=== PATIENT | male | born 1990 | race Caucasian/White ===

== ENCOUNTER 2021-11-26 19:35 | Inpatient (IN) | payer OTHER ==
[~2021-11-26] VITALS: Ht 173 cm; Wt 182.9 kg
[2021-11-26 21:06] LABS: BASOPHIL 0.2 % (0-2); EOSINOPHIL 0 % (0-5); HCT 45.5 % (42.0-52.0); HGB 14.2 g/dl (13.2-18.0); LYMPHOCYTE 12.1 % (15-48); MCH 27.3 pg (25.0-31.0); MCHC 31.2 g/dL (32.0-36.0); MCV 87.3 fL (78.0-100.0); MONOCYTE 3.6 % (0-12); NEUTROPHIL 83.9 % (41-80); NRBC 0; PLT 156 K/uL (150-400); RBC 5.21 M/uL (4.70-6.00); RDW 15.2 % (11.5-14.0); WBC 4.9 K/uL (4.0-10.5)
[2021-11-26 21:42] LABS: BUN/CREAT RATIO (CALC) 20.4 RATIO; CREATININE 0.54 mg/dL (0.67-1.17)
[2021-11-26 22:02] LABS: INFLUENZA A NAA NEGATIVE (NEGATIVE)
[2021-11-26 22:04] LABS: CORONAVIRUS 2019 SARS-COV-2 POSITIVE (NEGATIVE)
[2021-11-27 03:42] LABS: ALBUMIN 2.7 g/dL (3.4-5.0); BILIRUBIN - DIRECT 0.1 mg/dL (0.00-0.20); BILIRUBIN - TOTAL 0.3 mg/dL (0.2-1.0); GLOBULIN (CALCULATION) 4.8 g/dL; TOTAL PROTEIN 7.5 g/dL (6.4-8.2)
[2021-11-27 12:55] LABS: FLU B NEGATIVE B (NEGATIVE B)
[2021-11-28 05:48] LABS: BASOPHIL 0 % (0-2); EOSINOPHIL 0 % (0-5); HCT 43.2 % (42.0-52.0); HGB 13.5 g/dl (13.2-18.0); LYMPHOCYTE 11.1 % (15-48); MCH 26.8 pg (25.0-31.0); MCHC 31.3 g/dL (32.0-36.0); MCV 85.9 fL (78.0-100.0); MONOCYTE 3.8 % (0-12); MPV 8.7 fL (6.0-9.5); NEUTROPHIL 84.8 % (41-80); NRBC 0; PLT 212 K/uL (150-400); RBC 5.03 M/uL (4.70-6.00); RDW 15.1 % (11.5-14.0); WBC 7.9 K/uL (4.0-10.5)
[2021-11-28 07:19] LABS: BUN/CREAT RATIO (CALC) 29.3 RATIO; CREATININE 0.41 mg/dL (0.67-1.17); MAGNESIUM 2.1 mg/dL (1.8-2.4); POTASSIUM 3.8 mmol/L (3.5-5.1)
--- NOTE | 2021-11-28 16:47 | NUR ---
11/28/ Please monitor for
[2021-11-29 06:44] LABS: BUN/CREAT RATIO (CALC) 35.1 RATIO; C-REACTIVE PROTEIN 11.5 mg/dL (<=0.90); CREATININE 0.37 mg/dL (0.67-1.17); POTASSIUM 3.7 mmol/L (3.5-5.1)
[2021-11-30 05:28] LABS: CREATININE 0.45 mg/dL (0.67-1.17)
[2021-11-30 05:29] LABS: POTASSIUM 5.2 mmol/L (3.5-5.1)
[2021-12-01 04:25] LABS: BASOPHIL 0.2 % (0-2); EOSINOPHIL 0 % (0-5); HCT 42.6 % (42.0-52.0); HGB 13.6 g/dl (13.2-18.0); LYMPHOCYTE 12.1 % (15-48); MCHC 31.9 g/dL (32.0-36.0); MCV 84.7 fL (78.0-100.0); MONOCYTE 4.8 % (0-12); MPV 8.9 fL (6.0-9.5); NEUTROPHIL 81.4 % (41-80); NRBC 0; PLT 282 K/uL (150-400); RBC 5.03 M/uL (4.70-6.00); RDW 14.9 % (11.5-14.0); WBC 8.1 K/uL (4.0-10.5)
[2021-12-01 04:50] LABS: ALBUMIN 2.3 g/dL (3.4-5.0); BILIRUBIN - TOTAL 0.3 mg/dL (0.2-1.0); BUN/CREAT RATIO (CALC) 41.3 RATIO; CREATININE 0.46 mg/dL (0.67-1.17); GLOBULIN (CALCULATION) 4.6 g/dL; TOTAL PROTEIN 6.9 g/dL (6.4-8.2)
[2021-12-02 06:23] LABS: BASOPHIL 0.1 % (0-2); EOSINOPHIL 0.1 % (0-5); HCT 43.4 % (42.0-52.0); HGB 13.8 g/dl (13.2-18.0); LYMPHOCYTE 21.4 % (15-48); MCH 27.3 pg (25.0-31.0); MCHC 31.8 g/dL (32.0-36.0); MCV 85.9 fL (78.0-100.0); MONOCYTE 5.5 % (0-12); MPV 8.7 fL (6.0-9.5); NEUTROPHIL 72.3 % (41-80); NRBC 0; PLT 307 K/uL (150-400); RBC 5.05 M/uL (4.70-6.00); WBC 9.5 K/uL (4.0-10.5)
[2021-12-02 06:42] LABS: ALBUMIN 2.4 g/dL (3.4-5.0); BILIRUBIN - TOTAL 0.4 mg/dL (0.2-1.0); BUN/CREAT RATIO (CALC) 35.3 RATIO; C-REACTIVE PROTEIN 0.2 mg/dL (<=0.90); CREATININE 0.51 mg/dL (0.67-1.17); GLOBULIN (CALCULATION) 4.3 g/dL; TOTAL PROTEIN 6.7 g/dL (6.4-8.2)
[2021-12-02 06:58] LABS: POTASSIUM 3.2 mmol/L (3.5-5.1)
[2021-12-03 06:44] LABS: BASOPHIL 0.1 % (0-2); EOSINOPHIL 0.4 % (0-5); HCT 43.1 % (42.0-52.0); HGB 14.2 g/dl (13.2-18.0); LYMPHOCYTE 16.4 % (15-48); MCH 28.3 pg (25.0-31.0); MCHC 32.9 g/dL (32.0-36.0); MCV 85.9 fL (78.0-100.0); MONOCYTE 4.6 % (0-12); MPV 8.7 fL (6.0-9.5); NEUTROPHIL 77.3 % (41-80); NRBC 0; PLT 308 K/uL (150-400); RBC 5.02 M/uL (4.70-6.00); RDW 14.8 % (11.5-14.0); WBC 9.3 K/uL (4.0-10.5)
[2021-12-03 07:12] LABS: ALBUMIN 2.4 g/dL (3.4-5.0); BILIRUBIN - TOTAL 0.4 mg/dL (0.2-1.0); BUN/CREAT RATIO (CALC) 22.7 RATIO; CREATININE 0.44 mg/dL (0.67-1.17); GLOBULIN (CALCULATION) 4.5 g/dL; POTASSIUM 3.3 mmol/L (3.5-5.1); TOTAL PROTEIN 6.9 g/dL (6.4-8.2)
--- NOTE | 2021-12-04 15:15 | NUR ---
01/04/22 This social science professor was unable to reach Mr. Al by telephone. His mother reported the following: Mr. Al lives with his mother. He is independent with mobility and ADLS. Ms. Al reports her son to be unable to work due to "debilitating anxiety". He is in the process of applying for SSD. - Ms. Al states that [facility] is not seeing a therapist or mental health provider. She was provided with the telephone # to [facility]. - Ms. Al chose [facility] for 02 needs.
[2021-12-06 04:57] LABS: BASOPHIL 0.1 % (0-2); EOSINOPHIL 2.9 % (0-5); HGB 13.7 g/dl (13.2-18.0); LYMPHOCYTE 21.9 % (15-48); MCH 26.9 pg (25.0-31.0); MCHC 31.1 g/dL (32.0-36.0); MCV 86.3 fL (78.0-100.0); MONOCYTE 5.7 % (0-12); MPV 8.8 fL (6.0-9.5); NRBC 0; PLT 423 K/uL (150-400); RDW 14.7 % (11.5-14.0)
[2021-12-06 05:30] LABS: BUN/CREAT RATIO (CALC) 22.4 RATIO; CREATININE 0.49 mg/dL (0.67-1.17)
[2021-12-09] MEDS ORDERED: METFORMIN HCL500 MG PO (14:38)
[2021-12-09] MEDS ORDERED: LEVEMIR FL100 UNIT/1 SC (14:43)
[2021-12-09] MEDS ORDERED: NOVOLOG FL100 UNIT/1 SC (14:43)
--- NOTE | 2021-12-09 15:42 | NUR ---
12/09/21 A referral was made to [facility] home 02 at 5L.
[2021-12-09] MEDS ORDERED: VENTOLIN HFA IN18 GM INH (15:48)
== END 2021-12-09 17:15 | disposition home or self-care (01) | DRG 177 ==
LOC: FER 19:35 → FTCU 11-27 01:42 → FMS 12-05 11:12
PROVIDERS: Allergy & Immunology Allergy; Hospitalist; Internal Medicine; ADMIT Internal Medicine
PROC: XW033E5 Introduction of Remdesivir Anti-infective into Peripheral Vein, Percutaneous Approach, New Technology Group 5 (ICD-10-PCS; principal; 2021-11-26)
PROC: 8E0ZXY6 Isolation (ICD-10-PCS; 2021-11-27)
PROC: XW0DXM6 Introduction of Baricitinib into Mouth and Pharynx, External Approach, New Technology Group 6 (ICD-10-PCS; 2021-11-28)
PROC: 5A0955A Assistance with Respiratory Ventilation, Greater than 96 Consecutive Hours, High Flow/Velocity Cannula (ICD-10-PCS; 2021-11-30)
DX: U07.1 COVID-19 (principal); J12.82 Pneumonia due to coronavirus disease 2019; J96.01 Acute respiratory failure with hypoxia; Z68.44 Body mass index [BMI] 60.0-69.9, adult; E66.2 Morbid (severe) obesity with alveolar hypoventilation; E87.5 Hyperkalemia; E11.65 Type 2 diabetes mellitus with hyperglycemia; T38.0X5A Adverse effect of glucocorticoids and synthetic analogues, initial encounter; F41.9 Anxiety disorder, unspecified; I10 Essential (primary) hypertension; K76.0 Fatty (change of) liver, not elsewhere classified; Z88.0 Allergy status to penicillin; Z83.3 Family history of diabetes mellitus
CPT/HCPCS: 36415; 36600; 71045; 71250; 80048; 80053; 80076; 82550; 82728; 82803; 82962; 83036; 83735; 84145; 85025; 85379; 86140; 87804; 87899; 94010; 94640; 94660; 94664; 96372; 97162; 97530-GP; C9113; C9399; J0456; J0696; J1100; J1650; J1815; J7030; J7050; J8540; U0002

== ENCOUNTER 2021-12-23 09:12 | Inpatient (IN) | payer OTHER ==
[~2021-12-23] VITALS: Ht 175.3 cm; Wt 164.7 kg
[~2021-12-23 09:12] MED LIST: LEVEMIR FL100 UNIT/1 SC; METFORMIN HCL500 MG PO; NOVOLOG FL100 UNIT/1 SC; VENTOLIN HFA IN18 GM INH
[2021-12-23 09:42] LABS: BASOPHIL 0.3 % (0-2); EOSINOPHIL 0.1 % (0-5); HCT 41.7 % (42.0-52.0); HGB 12.7 g/dl (13.2-18.0); LYMPHOCYTE 9.7 % (15-48); MCH 26.3 pg (25.0-31.0); MCHC 30.5 g/dL (32.0-36.0); MCV 86.5 fL (78.0-100.0); MONOCYTE 5.2 % (0-12); NEUTROPHIL 83.1 % (41-80); NRBC 0.5; PLT 373 K/uL (150-400); RBC 4.82 M/uL (4.70-6.00); RDW 17.4 % (11.5-14.0); WBC 15.3 K/uL (4.0-10.5)
[2021-12-23 10:22] LABS: ALBUMIN 2.5 g/dL (3.4-5.0); BILIRUBIN - TOTAL 0.6 mg/dL (0.2-1.0); BUN/CREAT RATIO (CALC) 35.2 RATIO; CREATININE 0.54 mg/dL (0.67-1.17); GLOBULIN (CALCULATION) 5.2 g/dL; INR 1.25 (0.9-1.2); TOTAL PROTEIN 7.7 g/dL (6.4-8.2)
[2021-12-23 10:23] LABS: PTT 50.1 SECONDS (24.4-34.7)
[2021-12-23 10:24] LABS: D-DIMER 2.98 ug/mLFEU (0.00-0.41); LACTIC ACID 2.7 mmol/L (0.4-1.9)
[2021-12-23 11:35] LABS: INFLUENZA A NAA NEGATIVE (NEGATIVE)
[2021-12-23 11:39] LABS: CORONAVIRUS 2019 SARS-COV-2 POSITIVE (NEGATIVE)
[2021-12-23 16:58] LABS: C-REACTIVE PROTEIN > 18.00 mg/dL (<=0.90)
[2021-12-24 04:12] LABS: BASOPHIL 0.2 % (0-2); EOSINOPHIL 0 % (0-5); HCT 41.7 % (42.0-52.0); HGB 12.9 g/dl (13.2-18.0); LYMPHOCYTE 7.5 % (15-48); MCH 26.7 pg (25.0-31.0); MCHC 30.9 g/dL (32.0-36.0); MCV 86.3 fL (78.0-100.0); MONOCYTE 3.1 % (0-12); MPV 9.2 fL (6.0-9.5); NEUTROPHIL 88.7 % (41-80); NRBC 0; PLT 285 K/uL (150-400); RBC 4.83 M/uL (4.70-6.00); RDW 17.1 % (11.5-14.0); WBC 13.1 K/uL (4.0-10.5)
[2021-12-24 05:12] LABS: ALBUMIN 2.4 g/dL (3.4-5.0); ALKALINE PHOSHATASE 73 U/L (46-116); ALT 67 U/L (16-63); AST 34 U/L (15-37); BILIRUBIN - TOTAL 0.3 mg/dL (0.2-1.0); BUN 14 mg/dL (7-18); BUN/CREAT RATIO (CALC) 33.3 RATIO; C-REACTIVE PROTEIN >18.00 mg/dL (<=0.90); CHLORIDE 103 mmol/L (98-107); CO2 (BICARBONATE) 31 mmol/L (21-32); CREATININE 0.42 mg/dL (0.67-1.17); GLOBULIN (CALCULATION) 4.5 g/dL; GLUCOSE 251 mg/dL (74-106); POTASSIUM 4.6 mmol/L (3.5-5.1); TOTAL PROTEIN 6.9 g/dL (6.4-8.2)
[2021-12-24 06:08] LABS: HBSAG SCREEN Negative (Negative); HEP A AB, IGM Negative (Negative); HEP B CORE AB, IGM Negative (Negative); HEP C VIRUS AB <0.1 (0.0-0.9)
[2021-12-26 06:06] LABS: BASOPHIL 0.1 % (0-2); EOSINOPHIL 0 % (0-5); HCT 40.8 % (42.0-52.0); LYMPHOCYTE 8.6 % (15-48); MCH 26.1 pg (25.0-31.0); MCHC 29.4 g/dL (32.0-36.0); MCV 88.7 fL (78.0-100.0); MONOCYTE 4.9 % (0-12); MPV 9.4 fL (6.0-9.5); NEUTROPHIL 85.7 % (41-80); NRBC 0; PLT 405 K/uL (150-400); RDW 17.3 % (11.5-14.0); WBC 15.5 K/uL (4.0-10.5)
[2021-12-26 06:21] LABS: ALBUMIN 2.3 g/dL (3.4-5.0); BILIRUBIN - TOTAL 0.4 mg/dL (0.2-1.0); BUN/CREAT RATIO (CALC) 39.5 RATIO; C-REACTIVE PROTEIN 9.3 mg/dL (<=0.90); CREATININE 0.43 mg/dL (0.67-1.17); GLOBULIN (CALCULATION) 4.3 g/dL; MAGNESIUM 2.1 mg/dL (1.8-2.4); PHOSPHORUS 3.7 mg/dL (2.6-4.7); POTASSIUM 4.8 mmol/L (3.5-5.1); TOTAL PROTEIN 6.6 g/dL (6.4-8.2)
--- NOTE | 2021-12-26 10:28 | NUR ---
PT CHANGED FROM HI FLOW 02 TO OXYMIZER AT 15LPM. ON X 20 MINUTES O2 SAT 81% PT CHANGED BACK TO HI FLOW O2 60LMP 100%.
--- NOTE | 2021-12-26 14:07 | NUR ---
12/26/21 Mr. Al lives at home with his mother. He was discharged on 02 at 5 L from [facility]. His mother previously stated that he has debilitating anxiety. Inquiry is being made if patient would qualify for a trilogy or high flow at home.
[2021-12-27 05:18] LABS: IRON % SATURATION 7.6 %SAT (20-50)
[2021-12-27 05:45] LABS: ALBUMIN 2.3 g/dL (3.4-5.0); ALKALINE PHOSHATASE 83 U/L (46-116); ALT 51 U/L (16-63); AST 25 U/L (15-37); BILIRUBIN - TOTAL 0.6 mg/dL (0.2-1.0); BUN 12 mg/dL (7-18); BUN/CREAT RATIO (CALC) 32.4 RATIO; C-REACTIVE PROTEIN >18.00 mg/dL (<=0.90); CHLORIDE 100 mmol/L (98-107); CO2 (BICARBONATE) 31 mmol/L (21-32); CREATININE 0.37 mg/dL (0.67-1.17); FOLIC ACID (SERUM) 8.4 ng/mL (8.6-58.9); GLOBULIN (CALCULATION) 4.4 g/dL; GLUCOSE 294 mg/dL (74-106); PHOSPHORUS 3.1 mg/dL (2.6-4.7); POTASSIUM 5.1 mmol/L (3.5-5.1); TOTAL PROTEIN 6.7 g/dL (6.4-8.2)
[2021-12-27 05:51] LABS: BASOPHIL 0.1 % (0-2); EOSINOPHIL 0 % (0-5); HGB 12.6 g/dl (13.2-18.0); LYMPHOCYTE 4.6 % (15-48); MCH 26.1 pg (25.0-31.0); MONOCYTE 3.3 % (0-12); MPV 10.5 fL (6.0-9.5); NRBC 0; PLT 360 K/uL (150-400); RBC 4.83 M/uL (4.70-6.00); RDW 17.1 % (11.5-14.0); WBC 20.6 K/uL (4.0-10.5)
[2021-12-27 06:55] LABS: NEUTROPHIL 91.5 % (41-80)
[2021-12-28 04:09] LABS: BASOPHIL 0.1 % (0-2); EOSINOPHIL 0.6 % (0-5); HCT 42.7 % (42.0-52.0); HGB 12.6 g/dl (13.2-18.0); LYMPHOCYTE 3.8 % (15-48); MCH 26.1 pg (25.0-31.0); MCHC 29.5 g/dL (32.0-36.0); MCV 88.4 fL (78.0-100.0); MONOCYTE 2.5 % (0-12); MPV 9.4 fL (6.0-9.5); NRBC 0; PLT 517 K/uL (150-400); RBC 4.83 M/uL (4.70-6.00); RDW 16.8 % (11.5-14.0); WBC 19.4 K/uL (4.0-10.5)
[2021-12-28 04:19] LABS: NEUTROPHIL 92.4 % (41-80)
[2021-12-28 04:43] LABS: BUN 13 mg/dL (7-18); BUN/CREAT RATIO (CALC) 29.5 RATIO; C-REACTIVE PROTEIN >18.00 mg/dL (<=0.90); CHLORIDE 97 mmol/L (98-107); CO2 (BICARBONATE) 36 mmol/L (21-32); CREATININE 0.44 mg/dL (0.67-1.17); GLUCOSE 303 mg/dL (74-106); MAGNESIUM 1.9 mg/dL (1.8-2.4); POTASSIUM 5.2 mmol/L (3.5-5.1)
[2021-12-29 03:57] LABS: BASOPHIL 0.1 % (0-2); EOSINOPHIL 0.1 % (0-5); HCT 42.8 % (42.0-52.0); HGB 12.7 g/dl (13.2-18.0); LYMPHOCYTE 6.1 % (15-48); MCHC 29.7 g/dL (32.0-36.0); MCV 87.7 fL (78.0-100.0); MONOCYTE 2.3 % (0-12); MPV 9.2 fL (6.0-9.5); NRBC 0; PLT 534 K/uL (150-400); RBC 4.88 M/uL (4.70-6.00); RDW 16.5 % (11.5-14.0); WBC 16.8 K/uL (4.0-10.5)
[2021-12-29 04:19] LABS: BUN/CREAT RATIO (CALC) 40.5 RATIO; C-REACTIVE PROTEIN 10.9 mg/dL (<=0.90); CREATININE 0.37 mg/dL (0.67-1.17); POTASSIUM 4.9 mmol/L (3.5-5.1)
--- NOTE | 2021-12-29 19:51 | NUR ---
PATIENT STOOD TO URINATE AND DESAT TO 70'S ON OXIMIZER. PATIENT SAT DOWN ON BED AND O2 SAT WAS 58%, PLACED PATIENT ON BIPAP TO RECOVER. RT ALONA CAME INTO THE ROOM TO ASSIST. PATIENT QUICKLY RECOVERED TO 94% ON BIPAP. LEFT PATIENT ON BIPAP TO MAINTAIN O2. RN WILL SWITCH OXIMIZER SHORTLY.
[2021-12-30 03:00] LABS: BASOPHIL 0.1 % (0-2); EOSINOPHIL 0.3 % (0-5); HCT 42.4 % (42.0-52.0); HGB 12.8 g/dl (13.2-18.0); LYMPHOCYTE 6.7 % (15-48); MCH 25.9 pg (25.0-31.0); MCHC 30.2 g/dL (32.0-36.0); MCV 85.8 fL (78.0-100.0); MONOCYTE 2.9 % (0-12); MPV 9.2 fL (6.0-9.5); NEUTROPHIL 88.8 % (41-80); NRBC 0; PLT 587 K/uL (150-400); RBC 4.94 M/uL (4.70-6.00); RDW 16.5 % (11.5-14.0); WBC 18.8 K/uL (4.0-10.5)
[2021-12-30 03:25] LABS: ALBUMIN 2.1 g/dL (3.4-5.0); BILIRUBIN - TOTAL 0.4 mg/dL (0.2-1.0); BUN/CREAT RATIO (CALC) 42.9 RATIO; CREATININE 0.42 mg/dL (0.67-1.17); GLOBULIN (CALCULATION) 5.1 g/dL; MAGNESIUM 1.8 mg/dL (1.8-2.4); PHOSPHORUS 5.1 mg/dL (2.6-4.7); POTASSIUM 4.8 mmol/L (3.5-5.1); TOTAL PROTEIN 7.2 g/dL (6.4-8.2)
[2021-12-31 06:15] LABS: BASOPHIL 0 % (0-2); EOSINOPHIL 0.2 % (0-5); HCT 43.4 % (42.0-52.0); HGB 13.2 g/dl (13.2-18.0); LYMPHOCYTE 9.8 % (15-48); MCHC 30.4 g/dL (32.0-36.0); MCV 85.6 fL (78.0-100.0); MONOCYTE 4.9 % (0-12); MPV 9.3 fL (6.0-9.5); NEUTROPHIL 84.6 % (41-80); NRBC 0; PLT 538 K/uL (150-400); RBC 5.07 M/uL (4.70-6.00); RDW 16.3 % (11.5-14.0); WBC 14.4 K/uL (4.0-10.5)
[2021-12-31 07:10] LABS: ALBUMIN 2.4 g/dL (3.4-5.0); BILIRUBIN - TOTAL 0.3 mg/dL (0.2-1.0); BUN/CREAT RATIO (CALC) 43.2 RATIO; C-REACTIVE PROTEIN 1.7 mg/dL (<=0.90); CREATININE 0.37 mg/dL (0.67-1.17); GLOBULIN (CALCULATION) 4.9 g/dL; POTASSIUM 4.8 mmol/L (3.5-5.1); TOTAL PROTEIN 7.3 g/dL (6.4-8.2)
--- NOTE | 2021-12-31 23:35 | NUR ---
Patient's O2 saturation between 80-85% on 15L oxymizer. Patient stated that he needed the pressure turned up on his oxymizer. Patient educated that the oxymizer does not provide additional pressure, that it provides O2 flow. Patient stated that he was receiving "more pressure" on the oxuymizer during the day. Patient offered the bipap and educated that he should wear the bipap to maintain an adequate oxygen saturation. Patient stated that he did not want to become dependent on the bipap. Patient educated to wear the bipap by this RN and by respiratory therapist, because of risk from continued low oxygen. Patient continues to wear oxymizer, with O2 saturation of 80-85%.
[2022-01-01 05:52] LABS: BASOPHIL 0.1 % (0-2); EOSINOPHIL 2.1 % (0-5); HCT 45.1 % (42.0-52.0); HGB 13.6 g/dl (13.2-18.0); LYMPHOCYTE 17.5 % (15-48); MCH 25.8 pg (25.0-31.0); MCHC 30.2 g/dL (32.0-36.0); MCV 85.6 fL (78.0-100.0); MONOCYTE 5.8 % (0-12); MPV 9.2 fL (6.0-9.5); NEUTROPHIL 73.9 % (41-80); NRBC 0; PLT 570 K/uL (150-400); RBC 5.27 M/uL (4.70-6.00); RDW 16.3 % (11.5-14.0); WBC 21.1 K/uL (4.0-10.5)
[2022-01-01 06:12] LABS: CREATININE 0.49 mg/dL (0.67-1.17); POTASSIUM 4.2 mmol/L (3.5-5.1)
[2022-01-02 04:42] LABS: BILIRUBIN NEGATIVE (NEGATIVE); BLOOD NEGATIVE Ery/uL (NEGATIVE); CLARITY CLEAR (CLEAR); COLOR YELLOW (YELLOW); GLUCOSE (U) 1+ mg/dL (NORMAL); LEUKOCYTES NEGATIVE Leu/uL (NEGATIVE); NITRITE NEGATIVE (NEGATIVE); PROTEIN NEGATIVE (NEGATIVE); SPECIFIC GRAVITY >=1.030 (1.001-1.030); UROBILINOGEN 0.2 mg/dL (0.2-1.0)
[2022-01-02 06:45] LABS: HGB 13.6 g/dl (13.2-18.0); MCH 25.9 pg (25.0-31.0); MCHC 30.2 g/dL (32.0-36.0); MCV 85.6 fL (78.0-100.0); MPV 9.1 fL (6.0-9.5); RBC 5.26 M/uL (4.70-6.00); RDW 16.3 % (11.5-14.0); WBC 18.9 K/uL (4.0-10.5)
[2022-01-02 07:10] LABS: BUN/CREAT RATIO (CALC) 52.3 RATIO; CREATININE 0.44 mg/dL (0.67-1.17); POTASSIUM 3.9 mmol/L (3.5-5.1)
[2022-01-03 06:18] LABS: BASOPHIL 0.1 % (0-2); EOSINOPHIL 1.8 % (0-5); HCT 45.2 % (42.0-52.0); HGB 13.4 g/dl (13.2-18.0); LYMPHOCYTE 24.6 % (15-48); MCH 25.7 pg (25.0-31.0); MCHC 29.6 g/dL (32.0-36.0); MCV 86.8 fL (78.0-100.0); MONOCYTE 5.2 % (0-12); MPV 9.3 fL (6.0-9.5); NEUTROPHIL 67.8 % (41-80); NRBC 0; PLT 455 K/uL (150-400); RBC 5.21 M/uL (4.70-6.00); RDW 16.5 % (11.5-14.0); WBC 15.1 K/uL (4.0-10.5)
[2022-01-03 06:33] LABS: BUN/CREAT RATIO (CALC) 48.1 RATIO; CREATININE 0.52 mg/dL (0.67-1.17); POTASSIUM 3.8 mmol/L (3.5-5.1)
[2022-01-04 06:10] LABS: BASOPHIL 0.1 % (0-2); EOSINOPHIL 2.5 % (0-5); HCT 41.6 % (42.0-52.0); HGB 12.2 g/dl (13.2-18.0); LYMPHOCYTE 21.6 % (15-48); MCHC 29.3 g/dL (32.0-36.0); MCV 88.7 fL (78.0-100.0); MONOCYTE 5.2 % (0-12); MPV 9.8 fL (6.0-9.5); NEUTROPHIL 70.1 % (41-80); NRBC 0; PLT 448 K/uL (150-400); RBC 4.69 M/uL (4.70-6.00); RDW 16.9 % (11.5-14.0); WBC 14.8 K/uL (4.0-10.5)
[2022-01-04 07:36] LABS: BUN/CREAT RATIO (CALC) 51.1 RATIO; C-REACTIVE PROTEIN 2.9 mg/dL (<=0.90); CREATININE 0.45 mg/dL (0.67-1.17); POTASSIUM 3.8 mmol/L (3.5-5.1)
--- NOTE | 2022-01-04 13:15 | NUR ---
APX 0800 PT HELPED TO BSC. HR INCREASED TO 140S AND PT BEGAN TO COMPLAIN OF SEVERE SOA. 02 SATS DECREASED TO 78-82. MD NOTIFIED. PT STATED HE FELT ANXIOUS AND REQUESTED HIS PRN XANAX. XANAX AND PO METOPROLOL GIVEN W/ NO IMPROVEMENT. MD ARRIVED TO BEDSIDE AND NOTED ABSENT BREATH SOUNDS ON PT'S LEFT. PNEUMOTHORAX DIAGNOSED FOLLOWING CXR AND MD ASSESSMENT. CHEST TUBE PLACED BY SURGEON AND CONFIRMED VIA CXR. PT'S 02 SATS INCREASED TO 99% ON BIPAP.
[2022-01-05 04:36] LABS: BASOPHIL 0.1 % (0-2); EOSINOPHIL 1.9 % (0-5); HCT 40.6 % (42.0-52.0); HGB 11.9 g/dl (13.2-18.0); LYMPHOCYTE 14.2 % (15-48); MCH 25.9 pg (25.0-31.0); MCHC 29.3 g/dL (32.0-36.0); MCV 88.3 fL (78.0-100.0); MONOCYTE 4.9 % (0-12); MPV 9.3 fL (6.0-9.5); NEUTROPHIL 78.5 % (41-80); NRBC 0; PLT 434 K/uL (150-400); RDW 16.7 % (11.5-14.0); WBC 16.8 K/uL (4.0-10.5)
[2022-01-05 05:02] LABS: BUN/CREAT RATIO (CALC) 47.2 RATIO; CREATININE 0.36 mg/dL (0.67-1.17); POTASSIUM 3.9 mmol/L (3.5-5.1)
[2022-01-06 06:05] LABS: BASOPHIL 0.2 % (0-2); EOSINOPHIL 3.4 % (0-5); HCT 41.2 % (42.0-52.0); HGB 11.8 g/dl (13.2-18.0); LYMPHOCYTE 17.4 % (15-48); MCH 25.4 pg (25.0-31.0); MCHC 28.6 g/dL (32.0-36.0); MCV 88.8 fL (78.0-100.0); MONOCYTE 5.5 % (0-12); MPV 9.4 fL (6.0-9.5); NRBC 0; PLT 407 K/uL (150-400); RBC 4.64 M/uL (4.70-6.00); WBC 14.2 K/uL (4.0-10.5)
[2022-01-06 07:08] LABS: BUN/CREAT RATIO (CALC) 34.9 RATIO; CREATININE 0.43 mg/dL (0.67-1.17); POTASSIUM 3.9 mmol/L (3.5-5.1)
[2022-01-07 08:01] LABS: BASOPHIL 0.2 % (0-2); EOSINOPHIL 4.2 % (0-5); HCT 41.1 % (42.0-52.0); HGB 11.9 g/dl (13.2-18.0); LYMPHOCYTE 18.3 % (15-48); MCH 25.8 pg (25.0-31.0); MONOCYTE 5.7 % (0-12); MPV 9.2 fL (6.0-9.5); NEUTROPHIL 71.1 % (41-80); NRBC 0; PLT 354 K/uL (150-400); RBC 4.62 M/uL (4.70-6.00); RDW 17.1 % (11.5-14.0); WBC 10.8 K/uL (4.0-10.5)
[2022-01-07 08:08] LABS: BUN/CREAT RATIO (CALC) 46.9 RATIO; CREATININE 0.32 mg/dL (0.67-1.17); POTASSIUM 4.6 mmol/L (3.5-5.1)
[2022-01-08 06:29] LABS: BASOPHIL 0.2 % (0-2); EOSINOPHIL 5.3 % (0-5); HCT 39.2 % (42.0-52.0); HGB 11.7 g/dl (13.2-18.0); LYMPHOCYTE 17.9 % (15-48); MCH 26.4 pg (25.0-31.0); MCHC 29.8 g/dL (32.0-36.0); MCV 88.3 fL (78.0-100.0); MPV 9.8 fL (6.0-9.5); NEUTROPHIL 70.1 % (41-80); NRBC 0; PLT 429 K/uL (150-400); RBC 4.44 M/uL (4.70-6.00); RDW 17.2 % (11.5-14.0); WBC 12.8 K/uL (4.0-10.5)
[2022-01-08 06:38] LABS: BILIRUBIN - TOTAL 0.4 mg/dL (0.2-1.0); CREATININE 0.41 mg/dL (0.67-1.17); GLOBULIN (CALCULATION) 4.7 g/dL; PHOSPHORUS 3.1 mg/dL (2.6-4.7); POTASSIUM 3.8 mmol/L (3.5-5.1); TOTAL PROTEIN 6.7 g/dL (6.4-8.2)
[2022-01-08 06:39] LABS: MAGNESIUM 1.5 mg/dL (1.8-2.4)
--- NOTE | 2022-01-09 22:41 | NUR ---
@ 2000 PATIENT BECAME SOA AND STATES INCREASED PAIN AT LEFT CHEST TUBE SITE. VERIFIED WITH IRINA HERNANDEZ AND IRINA DOTY THAT THE CHEST UBE WAS IN THE CORRECT PLACE ALSO VERIFID WITH PCXR OBTAINED. PATIENT PLACED ON HIGH FLOW OX 40 L @ 100% AND NRB. AT 2015 PATIENT STATES FEELING MUCH BETTER, BREATHING AND PAIN HAVE GOTTEN BETTER AND PATIENT HAS AN O2 SAT OF 97%.
[2022-01-11 05:49] LABS: BASOPHIL 0.3 % (0-2); EOSINOPHIL 7.7 % (0-5); HCT 39.2 % (42.0-52.0); HGB 11.7 g/dl (13.2-18.0); LYMPHOCYTE 29.3 % (15-48); MCH 26.1 pg (25.0-31.0); MCHC 29.8 g/dL (32.0-36.0); MCV 87.3 fL (78.0-100.0); MONOCYTE 5.7 % (0-12); MPV 9.1 fL (6.0-9.5); NEUTROPHIL 56.5 % (41-80); NRBC 0; PLT 335 K/uL (150-400); RBC 4.49 M/uL (4.70-6.00); RDW 17.7 % (11.5-14.0); WBC 10.4 K/uL (4.0-10.5)
[2022-01-11 06:04] LABS: BUN/CREAT RATIO (CALC) 32.6 RATIO; CREATININE 0.46 mg/dL (0.67-1.17); MAGNESIUM 1.8 mg/dL (1.8-2.4); PHOSPHORUS 5.6 mg/dL (2.6-4.7); POTASSIUM 3.9 mmol/L (3.5-5.1)
[2022-01-13 06:00] LABS: BASOPHIL 0.3 % (0-2); EOSINOPHIL 8.4 % (0-5); HCT 38.9 % (42.0-52.0); HGB 11.6 g/dl (13.2-18.0); LYMPHOCYTE 15.4 % (15-48); MCH 26.1 pg (25.0-31.0); MCHC 29.8 g/dL (32.0-36.0); MCV 87.6 fL (78.0-100.0); MONOCYTE 5.9 % (0-12); MPV 9.1 fL (6.0-9.5); NEUTROPHIL 69.8 % (41-80); NRBC 0; PLT 295 K/uL (150-400); RBC 4.44 M/uL (4.70-6.00); WBC 12.1 K/uL (4.0-10.5)
[2022-01-13 06:21] LABS: BUN/CREAT RATIO (CALC) 28.9 RATIO; C-REACTIVE PROTEIN 6.1 mg/dL (<=0.90); CREATININE 0.45 mg/dL (0.67-1.17); MAGNESIUM 1.6 mg/dL (1.8-2.4); POTASSIUM 4.3 mmol/L (3.5-5.1)
[2022-01-14 05:34] LABS: BASOPHIL 0.3 % (0-2); HCT 37.9 % (42.0-52.0); HGB 11.3 g/dl (13.2-18.0); MCH 26.3 pg (25.0-31.0); MCHC 29.8 g/dL (32.0-36.0); MCV 88.3 fL (78.0-100.0); MONOCYTE 5.8 % (0-12); MPV 9.4 fL (6.0-9.5); NEUTROPHIL 66.5 % (41-80); NRBC 0; PLT 282 K/uL (150-400); RBC 4.29 M/uL (4.70-6.00); RDW 18.3 % (11.5-14.0); WBC 11.5 K/uL (4.0-10.5)
[2022-01-14 05:58] LABS: BUN/CREAT RATIO (CALC) 31.7 RATIO; CREATININE 0.41 mg/dL (0.67-1.17); MAGNESIUM 2.2 mg/dL (1.8-2.4); POTASSIUM 3.9 mmol/L (3.5-5.1)
--- NOTE | 2022-01-14 18:53 | NUR ---
[address] table, VS obtained, BP 129/72 (94), 125 HR, 98% NRB [address] Carreon at bedside to discuss procedure and what to expect along with any questions the patient may have. 1433 BP 127/69 (92), 126 HR, 98% NRB. Pt had initial CT chest to identify PNEUMO. 1441 TIME-OUT performed by RNCarleen (tech), Dr. Carreon, RN and patient all in agreeance of procedure. 1442 120/70 (88), 125 HR, 99% NRB. 1452 99% NRB, verbal order from Dr. Carreon to administer 25 mcg FENTANYL IVP. 1500 RN administered 25 mcg FENTANYL to patient IVP. 1502 BP 122/61 (86), 121 HR, 99% NRB. 1508 RN administered 25 mcg FENTANYL to patient IVP. 1512 BP 117/58 (81), 120 HR, 99% NRB. Pigtail chest tube placed without difficulty, final CT performed to ensure correct placement. Pt tolerated procedure well.
[2022-01-16 06:28] LABS: BASOPHIL 0.3 % (0-2); EOSINOPHIL 11.5 % (0-5); HCT 38.2 % (42.0-52.0); HGB 11.3 g/dl (13.2-18.0); LYMPHOCYTE 20.1 % (15-48); MCH 26.2 pg (25.0-31.0); MCHC 29.6 g/dL (32.0-36.0); MCV 88.4 fL (78.0-100.0); MONOCYTE 5.7 % (0-12); MPV 9.3 fL (6.0-9.5); NEUTROPHIL 62.1 % (41-80); NRBC 0; PLT 258 K/uL (150-400); RBC 4.32 M/uL (4.70-6.00); RDW 18.3 % (11.5-14.0); WBC 9.4 K/uL (4.0-10.5)
[2022-01-16 06:49] LABS: BUN/CREAT RATIO (CALC) 28.6 RATIO; CREATININE 0.42 mg/dL (0.67-1.17); POTASSIUM 4.1 mmol/L (3.5-5.1)
--- NOTE | 2022-01-18 12:01 | NUR ---
PT DISCHARGED VIA EMS WITH ALL BELONGINGS. SENT WITH LEFT CHEST TUBES X2, ROSA MIDLINE, AND 15L OXIMIZER. PT MEDICATED WITH VICODIN 10/325 AND XANAX PRIOR TO LEAVING THE BUILDING. REPORT CALLED TO PAOLA AYOUB AT [address]
--- NOTE | 2022-01-20 12:58 | NUR ---
01/20 [facility] was informed of patient's transfer to [facility] on 01/18/22.
== END 2022-01-18 11:54 | disposition other institution (70) | DRG 871 ==
LOC: FER 09:12 → FICU 12:53 → FTCU 01-03 15:26 → FICU 01-04 11:43 → FOFB 01-08 08:50 → FICU 01-08 08:52 → FTCU 01-09 16:13
PROVIDERS: Emergency Medicine; Internal Medicine; Nurse Practitioner; Nurse Practitioner Acute Care; Nurse Practitioner Family; ADMIT Family Medicine
PROC: 5A09557 Assistance with Respiratory Ventilation, Greater than 96 Consecutive Hours, Continuous Positive Airway Pressure (ICD-10-PCS; 2021-12-23)
PROC: 3E0333Z Introduction of Anti-inflammatory into Peripheral Vein, Percutaneous Approach (ICD-10-PCS; 2021-12-23)
PROC: 05HY33Z Insertion of Infusion Device into Upper Vein, Percutaneous Approach (ICD-10-PCS; 2021-12-28)
PROC: XW0DXM6 Introduction of Baricitinib into Mouth and Pharynx, External Approach, New Technology Group 6 (ICD-10-PCS; 2021-12-29)
PROC: 0W9B30Z Drainage of Left Pleural Cavity with Drainage Device, Percutaneous Approach (ICD-10-PCS; 2022-01-04)
PROC: 0W9B30Z Drainage of Left Pleural Cavity with Drainage Device, Percutaneous Approach (ICD-10-PCS; principal; 2022-01-14)
DX: A41.89 Other specified sepsis (principal); U07.1 COVID-19; J12.82 Pneumonia due to coronavirus disease 2019; J15.8 Pneumonia due to other specified bacteria; I21.A1 Myocardial infarction type 2; J80 Acute respiratory distress syndrome; J93.0 Spontaneous tension pneumothorax; E66.2 Morbid (severe) obesity with alveolar hypoventilation; Z68.43 Body mass index [BMI] 50.0-59.9, adult; E87.3 Alkalosis; R65.20 Severe sepsis without septic shock; L89.312 Pressure ulcer of right buttock, stage 2; Y95 Nosocomial condition; D50.9 Iron deficiency anemia, unspecified; F41.9 Anxiety disorder, unspecified; E11.65 Type 2 diabetes mellitus with hyperglycemia; Z79.4 Long term (current) use of insulin; Z88.0 Allergy status to penicillin; Z99.81 Dependence on supplemental oxygen; Z88.1 Allergy status to other antibiotic agents
CPT/HCPCS: 36415; 36600; 71045; 71250; 71275; 77012; 80048; 80053; 80074; 80162; 81003; 82248; 82607; 82728; 82746; 82803; 82962; 83540; 83550; 83605; 83735; 83880; 84100; 84145; 84484; 85025; 85379; 85610; 85730; 86140; 87040; 93005; 94640; 94660; 94667; 94668; 96374; C1751; J1100; J1160; J1170; J1650; J1815; J2185; J2916; J3010; J3475; J7030; J7050; Q9967; U0002